=== PATIENT | male | born 1945 | race Caucasian/White ===

== ENCOUNTER 2021-03-16 05:47 | Inpatient (IN) | payer OTHER ==
[2021-03-15 16:16] LABS: BASOPHILS % (AUTO) 0.3 % (0.0-5.0); HEMATOCRIT 40.6 % (42-54); LYMPHOCYTES % (AUTO) 5.5 % (21.0-51.0); MEAN CORPUSCULAR HGB CONC 32.3 g/dL (32.0-36.0); MEAN CORPUSCULAR VOLUME 86.8 fL (79-99); NEUTROPHILS % (AUTO) 80.9 % (40.0-77.0); PLATELET COUNT (AUTO) 213 K/uL (130-400); RED BLOOD CELL COUNT(AUTO) 4.68 MIL/uL (4.50-6.20); RED CELL DISTRIBUTION WIDTH 15.7 % (11.0-15.5); WHITE BLOOD COUNT (AUTO) 20.6 K/uL (4.8-10.8)
[2021-03-15 16:31] LABS: ALBUMIN 3.3 g/dL (3.5-5.0); BILIRUBIN,TOTAL 1.4 mg/dL (0.2-1.0); CREATININE 1.6 mg/dL (0.5-1.5); POTASSIUM 4.8 mmol/L (3.5-5.1); TOTAL PROTEIN, SERUM 7.4 g/dL (6.0-8.3)
[~2021-03-16] VITALS: Ht 198.1 cm; Wt 92.9 kg
[2021-03-16] VITALS (11 sets, daily range): BP systolic 90–145; BP diastolic 52–78
[2021-03-16] MEDS ORDERED: 0.9%NACL 1000ML 1,000 ML IV ONE (06:49)
[2021-03-16] MEDS ORDERED: LIPA1CAP18 PO (06:52)
[2021-03-16] MEDS ORDERED: LISI10TA24 PO (06:52)
[2021-03-16] MEDS ORDERED: ONDA4TAB4 PO (06:52)
[2021-03-16] MEDS ORDERED: AMOX1TAB16 PO (06:52)
[2021-03-16] MEDS ORDERED: METO-408 PO (06:52)
[2021-03-16 07:26] LABS: BASOPHILS % (AUTO) 0.3 % (0.0-5.0); EOSINOPHILS % (AUTO) 0.6 % (0.0-8.0); HEMATOCRIT 37.2 % (42-54); LYMPHOCYTES % (AUTO) 5.8 % (21.0-51.0); MEAN CORPUSCULAR HGB CONC 32.3 g/dL (32.0-36.0); MEAN CORPUSCULAR VOLUME 86.7 fL (79-99); MONOCYTES % (AUTO) 9.8 % (3.0-13.0); NEUTROPHILS % (AUTO) 82.1 % (40.0-77.0); PLATELET COUNT (AUTO) 203 K/uL (130-400); RED BLOOD CELL COUNT(AUTO) 4.29 MIL/uL (4.50-6.20); RED CELL DISTRIBUTION WIDTH 15.5 % (11.0-15.5); WHITE BLOOD COUNT (AUTO) 14.6 K/uL (4.8-10.8)
[2021-03-16] MEDS ORDERED: PROPOFOL 10 MG/ML 20ML VIAL IV ONE ×2 (07:57)
[2021-03-16] MEDS ORDERED: ESMOLOL HCL 10 MG/ML 10 ML VIAL ONE (08:15)
[2021-03-16] MEDS ORDERED: CEFTRIAXONE 1G VIAL ONE (08:19)
[2021-03-16] MEDS ORDERED: LACTATED RINGERS 1000ML 1,000 ML IV ONE ×2 (08:59→09:47)
[2021-03-16] MEDS: LACTATED RINGERS 1000ML 1,000 ML IV SCH ×6 (09:30→16:37)
[2021-03-16] MEDS ORDERED: VANCOMYCIN PROTOCOL PER PHARMACY IV PRN (09:30)
[2021-03-16] MEDS ORDERED: ONDANSETRON 4MG INJ IV PRN (09:30)
[2021-03-16] MEDS ORDERED: DIGOXIN 250 MCG/ML 2ML AMP IV SCH (09:30)
[2021-03-16] MEDS ORDERED: VANCOMYCIN 1.5GM/NS 250ML IV SCH ×2 (10:00)
[2021-03-16] MEDS ORDERED: METOPROLOL TARTRATE 1 MG/ML 5ML VIAL IV SCH (10:00)
[2021-03-16 10:15] LABS: BASOPHILS % (AUTO) 0.3 % (0.0-5.0); EOSINOPHILS % (AUTO) 1.3 % (0.0-8.0); LYMPHOCYTES % (AUTO) 5.4 % (21.0-51.0); MEAN CORPUSCULAR HEMOGLOBIN 28.4 pg (27.0-33.0); MEAN CORPUSCULAR HGB CONC 32.2 g/dL (32.0-36.0); MEAN CORPUSCULAR VOLUME 88.3 fL (79-99); MONOCYTES % (AUTO) 8.8 % (3.0-13.0); NEUTROPHILS % (AUTO) 83.6 % (40.0-77.0); PLATELET COUNT (AUTO) 212 K/uL (130-400); RED BLOOD CELL COUNT(AUTO) 4.19 MIL/uL (4.50-6.20); RED CELL DISTRIBUTION WIDTH 15.7 % (11.0-15.5); WHITE BLOOD COUNT (AUTO) 15.5 K/uL (4.8-10.8)
[2021-03-16 10:24] LABS: INR 1.17 (0.85-1.15); PROTHROMBIN TIME 12.6 SEC (9.6-11.6)
[2021-03-16 10:25] LABS: PARTIAL THROMBOPLASTIN TIME 32.7 SEC (26.3-35.5)
[2021-03-16 10:27] LABS: HEMOGLOBIN A1C 6.4 % (4.0-6.0)
[2021-03-16] MEDS ORDERED: IOHEXOL 350 MG/ML 100ML INFUS..BTL IV ONE (10:27)
[2021-03-16] MEDS ORDERED: ZOSYN 3.375GM+NS 50ML 50 ML IV SCH (10:30)
[2021-03-16 10:46] LABS: ALANINE AMINOTRANSFERASE 19 U/L (12-78); ALBUMIN 2.6 g/dL (3.5-5.0); AMYLASE 45 U/L (25-115); ASPARTATE AMINOTRANSFERASE 16 U/L (10-37); BILIRUBIN,TOTAL 0.9 mg/dL (0.2-1.0); CARBON DIOXIDE 26 mmol/L (21-32); CHLORIDE 100 mmol/L (101-111); CREATINE KINASE, TOTAL 31 U/L (21-232); CREATININE 1.1 mg/dL (0.5-1.5); GLOMERULAR FILTR. RATE CALC 70 mL/min (>60); GLUCOSE,RANDOM 131 mg/dL (70-105); MYOGLOBIN 60 ng/mL (10-92); PHOSPHORUS 3.3 mg/dL (2.5-4.9); POTASSIUM 3.8 mmol/L (3.5-5.1); SODIUM SERUM 136 mmol/L (136-145); THYROID STIMULATING HORMONE 2.24 uIU/mL (0.36-3.74); TOTAL PROTEIN, SERUM 6.3 g/dL (6.0-8.3); UREA NITROGEN, BLOOD 29 mg/dL (7-18)
[2021-03-16 10:52] LABS: LIPASE < 50 U/L (114-286)
[2021-03-16 11:00] LABS: AMYLASE,BODY FLUID 6084 U/L
[2021-03-16 11:09] LABS: GLUCOSE,BODY FLUID 0 mg/dL (1-40)
[2021-03-16] MEDS ORDERED: ZOSYN 3.375GM+NS 50ML 50 ML ONE (19:42)
[2021-03-16] MEDS: ZOSYN 3.375GM+NS 50ML 50 ML IV SCH (20:06)
[2021-03-16] MEDS ORDERED: FAMOTIDINE 20MG VIAL IV SCH (21:00)
[2021-03-16] MEDS: 0.9% NACL 250ML 250 ML IV SCH (23:20)
[2021-03-16] MEDS: VANCOMYCIN KIT 1 GM/250 ML IV.KIT IV SCH (23:20)
[2021-03-17] VITALS: BP 119/71
[2021-03-17 01:12] LABS: BASOPHILS % (AUTO) 0.4 % (0.0-5.0); EOSINOPHILS % (AUTO) 0.2 % (0.0-8.0); HEMATOCRIT 32.7 % (42-54); LYMPHOCYTES % (AUTO) 11.1 % (21.0-51.0); MEAN CORPUSCULAR HEMOGLOBIN 28.3 pg (27.0-33.0); MEAN CORPUSCULAR VOLUME 85.8 fL (79-99); MONOCYTES % (AUTO) 7.5 % (3.0-13.0); NEUTROPHILS % (AUTO) 80.6 % (40.0-77.0); PLATELET COUNT (AUTO) 184 K/uL (130-400); RED BLOOD CELL COUNT(AUTO) 3.81 MIL/uL (4.50-6.20); RED CELL DISTRIBUTION WIDTH 15.4 % (11.0-15.5); WHITE BLOOD COUNT (AUTO) 8.9 K/uL (4.8-10.8)
[2021-03-17 01:40] LABS: ALANINE AMINOTRANSFERASE 19 U/L (12-78); ALBUMIN 2.3 g/dL (3.5-5.0); AMYLASE 42 U/L (25-115); ASPARTATE AMINOTRANSFERASE 15 U/L (10-37); CARBON DIOXIDE 26 mmol/L (21-32); CHLORIDE 102 mmol/L (101-111); CREATINE KINASE, TOTAL 18 U/L (21-232); GLOMERULAR FILTR. RATE CALC 78 mL/min (>60); GLUCOSE,RANDOM 113 mg/dL (70-105); MYOGLOBIN 45 ng/mL (10-92); POTASSIUM 3.5 mmol/L (3.5-5.1); SODIUM SERUM 136 mmol/L (136-145); TOTAL PROTEIN, SERUM 5.9 g/dL (6.0-8.3); UREA NITROGEN, BLOOD 23 mg/dL (7-18)
[2021-03-17 01:47] LABS: LIPASE < 50 U/L (114-286)
[2021-03-17 04:00] VITALS: BP 128/63
[2021-03-17] MEDS ORDERED: 0.9%NACL 50ML 50 ML IV ONE (05:54)
[2021-03-17] MEDS: ZOSYN 3.375GM+NS 50ML 50 ML IV SCH (05:58)
[2021-03-17 08:00] VITALS: BP 133/70
[2021-03-17] MEDS ORDERED: ENOXAPARIN SODIUM 40 MG/0.4 ML SYRINGE SQ SCH (09:00)
[2021-03-17] MEDS: VANCOMYCIN KIT 1 GM/250 ML IV.KIT IV SCH ×2 (09:31→20:59)
[2021-03-17] MEDS: PANTOPRAZOLE 40 MG/VIAL IVP SCH (09:31)
[2021-03-17] MEDS ORDERED: DIGOXIN 125 MCG TABLET PO SCH (11:00)
[2021-03-17 12:00] VITALS: BP 133/77
[2021-03-17] MEDS: APIXABAN 5 MG TABLET PO SCH ×2 (12:11→20:59)
[2021-03-17] MEDS: MEROPENEM 1 GM VIAL IVP SCH ×2 (15:13→22:23)
[2021-03-17] MEDS: LACTATED RINGERS 1000ML 1,000 ML IV SCH (15:36)
[2021-03-17 16:00] VITALS: BP 138/76
[2021-03-17 20:00] VITALS: BP 147/78
[2021-03-17] MEDS: 0.9% NACL 250ML 250 ML IV SCH (20:59)
[2021-03-18] VITALS: BP 156/76
[2021-03-18 03:58] LABS: HEMATOCRIT 35.2 % (42-54); MEAN CORPUSCULAR HEMOGLOBIN 27.2 pg (27.0-33.0); MEAN CORPUSCULAR HGB CONC 32.1 g/dL (32.0-36.0); MEAN CORPUSCULAR VOLUME 84.8 fL (79-99); RED BLOOD CELL COUNT(AUTO) 4.15 MIL/uL (4.50-6.20); WHITE BLOOD COUNT (AUTO) 10.7 K/uL (4.8-10.8)
[2021-03-18 04:00] VITALS: BP 140/73
[2021-03-18 04:13] LABS: ALBUMIN 2.4 g/dL (3.5-5.0); BILIRUBIN,TOTAL 0.8 mg/dL (0.2-1.0); POTASSIUM 3.3 mmol/L (3.5-5.1); TOTAL PROTEIN, SERUM 6.2 g/dL (6.0-8.3)
[2021-03-18 04:41] LABS: CRP QUANTITATIVE 229.1 mg/L (0.00-9.0)
[2021-03-18] MEDS: MEROPENEM 1 GM VIAL IVP SCH ×2 (05:05→14:30)
[2021-03-18 08:00] VITALS: BP 141/75
[2021-03-18] MEDS: VANCOMYCIN KIT 1 GM/250 ML IV.KIT IV SCH (10:53)
[2021-03-18] MEDS: PANTOPRAZOLE 40 MG/VIAL IVP SCH (10:54)
[2021-03-18] MEDS: APIXABAN 5 MG TABLET PO SCH (10:54)
[2021-03-18] MEDS: 0.9% NACL 250ML 250 ML IV SCH (10:54)
[2021-03-18 12:00] VITALS: BP 132/70
[2021-03-18] MEDS ORDERED: APIX5TAB PO (14:30)
[2021-03-18] MEDS ORDERED: AMOX1TAB16 PO (14:30)
[2021-03-18] MEDS ORDERED: DIGO125T71 PO (14:30)
[2021-03-18] MEDS ORDERED: KCL 20 MEQ ERTAB PO ONE ×2 (15:00→17:09)
[2021-03-18] MEDS ORDERED: DIGOXIN 125 MCG TABLET PO SCH (16:00)
== END 2021-03-18 18:00 | disposition home or self-care (01) | DRG 871 ==
LOC: DAH 05:47 → ENDO 05:47 → DAHIP 05:48 → ENDO 05:48 → 2DH 11:15
PROVIDERS: ADMIT Internal Medicine; ATTEND Internal Medicine
PROC: 0F9G8ZX Drainage of Pancreas, Via Natural or Artificial Opening Endoscopic, Diagnostic (ICD-10-PCS; principal; 2021-03-16)
DX: A41.9 Sepsis, unspecified organism (principal); K83.1 Obstruction of bile duct; R65.21 Severe sepsis with septic shock; K85.90 Acute pancreatitis without necrosis or infection, unspecified; K86.3 Pseudocyst of pancreas; N17.9 Acute kidney failure, unspecified; I10 Essential (primary) hypertension; Z20.822 Contact with and (suspected) exposure to COVID-19; I48.91 Unspecified atrial fibrillation; Z87.891 Personal history of nicotine dependence; Z90.49 Acquired absence of other specified parts of digestive tract; Z88.8 Allergy status to other drugs, medicaments and biological substances; Z83.3 Family history of diabetes mellitus; Z80.9 Family history of malignant neoplasm, unspecified
CPT/HCPCS: 36415; 43242; 71045; 74177; 80053; 80202; 82150; 82378; 82550; 82945; 82948; 83036; 83605; 83690; 83735; 83874; 84100; 84145; 84443; 84484; 85025; 85027; 85610; 85730; 86140; 86316; 87040; 87071; 87076; 87077; 87088; 87186; 87205; 87635; 93005; A4606; C9113; C9803; G0378; J0696; J1160; J1650; J2185; J2543; J2704; J3370; J3490; J7030; J7050; J7120; Q9967

== ENCOUNTER 2021-03-20 15:53 | Inpatient (IN) | payer OTHER ==
[~2021-03-20] VITALS: Ht 167.6 cm; Wt 92.5 kg
[~2021-03-20 15:53] MED LIST: AMOX1TAB16 PO; APIX5TAB PO; DIGO125T71 PO; LIPA1CAP18 PO; METO-408 PO; ONDA4TAB4 PO
[2021-03-20] MEDS ORDERED: METO25 PO (16:19)
[2021-03-20] MEDS ORDERED: CHOL2000 PO (16:19)
[2021-03-20] MEDS ORDERED: LISI10TA24 PO (16:19)
[2021-03-20] MEDS ORDERED: PHARMACY COMMUNICATION MISC SCH (16:30)
[2021-03-20 16:55] LABS: BASOPHILS % (AUTO) 0.5 % (0.0-5.0); EOSINOPHILS % (AUTO) 0.7 % (0.0-8.0); LYMPHOCYTES % (AUTO) 6.7 % (21.0-51.0); MEAN CORPUSCULAR HEMOGLOBIN 27.7 pg (27.0-33.0); MEAN CORPUSCULAR VOLUME 84.1 fL (79-99); MONOCYTES % (AUTO) 11.2 % (3.0-13.0); NEUTROPHILS % (AUTO) 79.7 % (40.0-77.0); PLATELET COUNT (AUTO) 317 K/uL (130-400); RED CELL DISTRIBUTION WIDTH 14.8 % (11.0-15.5)
[2021-03-20] MEDS ORDERED: IOHEXOL 350 MG/ML 100ML INFUS..BTL IV ONE (17:01)
[2021-03-20 17:09] LABS: CREATININE 0.9 mg/dL (0.5-1.5); POTASSIUM 3.7 mmol/L (3.5-5.1)
[2021-03-20 17:13] LABS: ALBUMIN 2.5 g/dL (3.5-5.0); BILIRUBIN,DIRECT 0.5 mg/dL (0.0-0.3); BILIRUBIN,TOTAL 1.1 mg/dL (0.2-1.0); MAGNESIUM 1.7 mg/dL (1.80-2.40); TOTAL PROTEIN, SERUM 6.9 g/dL (6.0-8.3)
[2021-03-20] MEDS: LACTATED RINGERS 1000ML 1,000 ML IV SCH ×2 (18:19→20:00)
[2021-03-20] MEDS: MEROPENEM 1 GM VIAL IVP SCH (18:57)
[2021-03-20] MEDS: AMYLASE PO SCH (22:27)
[2021-03-20] MEDS: PROTEASE PO SCH (22:27)
[2021-03-20] MEDS: LIPASE PO SCH (22:27)
[2021-03-20] MEDS: LISINOPRIL 10 MG TABLET PO SCH (22:27)
[2021-03-20] MEDS: METOPROLOL TARTRATE 25 MG TAB PO SCH (22:27)
[2021-03-21] MEDS: MORPHINE 2 MG SYG IVP PRN ×3 (00:22→14:32)
[2021-03-21] MEDS: MEROPENEM 1 GM VIAL IVP SCH ×2 (01:00→09:39)
[2021-03-21] MEDS: LACTATED RINGERS 1000ML 1,000 ML IV SCH (05:50)
[2021-03-21 06:49] LABS: CREATININE 0.8 mg/dL (0.5-1.5); MAGNESIUM 1.8 mg/dL (1.80-2.40); POTASSIUM 3.5 mmol/L (3.5-5.1)
[2021-03-21 08:00] VITALS: BP 141/68
[2021-03-21] MEDS: LIPASE PO SCH ×3 (09:00→20:39)
[2021-03-21] MEDS: (Cholecalciferol (Vitamin D3) (Vitamin D3) 50 MCG) PO SCH (09:00)
[2021-03-21] MEDS: PROTEASE PO SCH ×3 (09:00→20:39)
[2021-03-21] MEDS: AMYLASE PO SCH ×3 (09:00→20:39)
[2021-03-21] MEDS ORDERED: 0.9%NACL 50ML 50 ML IV ONE (09:21)
[2021-03-21] MEDS: METOPROLOL TARTRATE 25 MG TAB PO SCH ×2 (09:39→20:39)
[2021-03-21 12:00] VITALS: BP 131/69
[2021-03-21] MEDS ORDERED: ZOSYN 3.375GM +NS 50ML IV SCH (12:30)
[2021-03-21] MEDS: ZOSYN 3.375GM+NS 50ML 50 ML IV SCH ×3 (13:08→20:39)
[2021-03-21 16:00] VITALS: BP 133/67
[2021-03-21 20:07] VITALS: BP 159/75
[2021-03-21] MEDS: LISINOPRIL 10 MG TABLET PO SCH (20:39)
[2021-03-21 23:47] VITALS: BP 155/71
[2021-03-22] VITALS (23 sets, daily range): BP systolic 120–162; BP diastolic 57–99
[2021-03-22 04:45] LABS: BASOPHILS % (AUTO) 0.5 % (0.0-5.0); EOSINOPHILS % (AUTO) 0.8 % (0.0-8.0); HEMATOCRIT 35.1 % (42-54); MEAN CORPUSCULAR HEMOGLOBIN 27.5 pg (27.0-33.0); MEAN CORPUSCULAR HGB CONC 32.8 g/dL (32.0-36.0); MONOCYTES % (AUTO) 7.1 % (3.0-13.0); NEUTROPHILS % (AUTO) 84.6 % (40.0-77.0); PLATELET COUNT (AUTO) 369 K/uL (130-400); RED BLOOD CELL COUNT(AUTO) 4.18 MIL/uL (4.50-6.20); RED CELL DISTRIBUTION WIDTH 15.1 % (11.0-15.5); WHITE BLOOD COUNT (AUTO) 12.8 K/uL (4.8-10.8)
[2021-03-22 05:04] LABS: ALBUMIN 2.1 g/dL (3.5-5.0); BILIRUBIN,TOTAL 0.8 mg/dL (0.2-1.0); CREATININE 0.8 mg/dL (0.5-1.5); POTASSIUM 3.4 mmol/L (3.5-5.1)
[2021-03-22] MEDS: ZOSYN 3.375GM+NS 50ML 50 ML IV SCH ×3 (05:47→20:28)
[2021-03-22 05:59] LABS: ERYTHROCYTE SEDIMENTATION RATE 65 MM/HR (0-20)
[2021-03-22] MEDS ORDERED: LIDOCAINE HCL-MPF 1% 2ML VIAL IV PRN ×3 (07:00→11:30)
[2021-03-22] MEDS ORDERED: POTASSIUM CHLORIDE 20MEQ/100ML 100 ML IV PRN ×3 (07:00→11:30)
[2021-03-22] MEDS ORDERED: PROPOFOL 10 MG/ML 20ML VIAL IV ONE (08:21)
[2021-03-22] MEDS ORDERED: FENTANYL CITRATE PF 50 MCG/1 ML 2ML VIAL ONE (08:22)
[2021-03-22] MEDS ORDERED: ROCURONIUM 10MG/1ML SYR 10 MG/ML ML ONE (08:23)
[2021-03-22] MEDS ORDERED: GLYCOPYRROLATE 0.2 MG/ML 5 ML VIAL ONE (08:39)
[2021-03-22] MEDS ORDERED: NEOSTIGMINE 5MG/5ML SYR IV ONE (08:43)
[2021-03-22] MEDS: (Cholecalciferol (Vitamin D3) (Vitamin D3) 50 MCG) PO SCH (09:00)
[2021-03-22] MEDS: LIPASE/PROTEASE/AMYLASE 5000/17000/24000 PO SCH ×3 (10:25→20:29)
[2021-03-22] MEDS: METOPROLOL TARTRATE 25 MG TAB PO SCH ×2 (10:25→20:28)
[2021-03-22] MEDS: LACTATED RINGERS 1000ML 1,000 ML IV SCH ×2 (10:29→21:50)
[2021-03-22] MEDS ORDERED: POTASSIUM CHLORIDE 10% ELIXIR 20 MEQ/15 ML UDCUP PO PRN (11:30)
[2021-03-22] MEDS ORDERED: 0.9%NACL 50ML 50 ML IV ONE (11:40)
[2021-03-22] MEDS: KCL 20 MEQ ERTAB PO PRN ×2 (12:03→14:33)
[2021-03-22] MEDS: LISINOPRIL 10 MG TABLET PO SCH (20:28)
[2021-03-23 03:20] VITALS: BP 145/71
[2021-03-23 04:03] LABS: BASOPHILS % (AUTO) 0.5 % (0.0-5.0); EOSINOPHILS % (AUTO) 1.6 % (0.0-8.0); HEMATOCRIT 36.8 % (42-54); LYMPHOCYTES % (AUTO) 10.9 % (21.0-51.0); MEAN CORPUSCULAR HEMOGLOBIN 27.3 pg (27.0-33.0); MEAN CORPUSCULAR HGB CONC 32.3 g/dL (32.0-36.0); MEAN CORPUSCULAR VOLUME 84.4 fL (79-99); MONOCYTES % (AUTO) 6.2 % (3.0-13.0); PLATELET COUNT (AUTO) 403 K/uL (130-400); RED BLOOD CELL COUNT(AUTO) 4.36 MIL/uL (4.50-6.20); RED CELL DISTRIBUTION WIDTH 15.1 % (11.0-15.5); WHITE BLOOD COUNT (AUTO) 10.2 K/uL (4.8-10.8)
[2021-03-23 04:42] LABS: BILIRUBIN,TOTAL 0.6 mg/dL (0.2-1.0); CREATININE 0.8 mg/dL (0.5-1.5); MAGNESIUM 1.9 mg/dL (1.80-2.40); POTASSIUM 4.3 mmol/L (3.5-5.1); TOTAL PROTEIN, SERUM 5.3 g/dL (6.0-8.3)
[2021-03-23] MEDS: ZOSYN 3.375GM+NS 50ML 50 ML IV SCH ×3 (04:43→21:04)
[2021-03-23 08:00] VITALS: BP 133/66
[2021-03-23] MEDS: (Cholecalciferol (Vitamin D3) (Vitamin D3) 50 MCG) PO SCH (09:00)
[2021-03-23] MEDS: METOPROLOL TARTRATE 25 MG TAB PO SCH ×2 (09:07→21:05)
[2021-03-23] MEDS: LIPASE/PROTEASE/AMYLASE 5000/17000/24000 PO SCH ×3 (09:08→21:00)
[2021-03-23] MEDS: LACTATED RINGERS 1000ML 1,000 ML IV SCH (11:10)
[2021-03-23 12:00] VITALS: BP 138/73
[2021-03-23] MEDS ORDERED: 0.9%NACL 50ML 50 ML IV ONE ×2 (14:06→20:36)
[2021-03-23 16:00] VITALS: BP 133/70
[2021-03-23 18:58] VITALS: BP 155/71
[2021-03-23] MEDS: LISINOPRIL 10 MG TABLET PO SCH (21:05)
[2021-03-23 23:13] VITALS: BP 140/84
[2021-03-24] MEDS: LACTATED RINGERS 1000ML 1,000 ML IV SCH (00:33)
[2021-03-24] MEDS: ZOSYN 3.375GM+NS 50ML 50 ML IV SCH (04:00)
[2021-03-24 04:24] VITALS: BP 136/73
[2021-03-24 04:41] LABS: BASOPHILS % (AUTO) 0.8 % (0.0-5.0); EOSINOPHILS % (AUTO) 2.6 % (0.0-8.0); HEMATOCRIT 36.6 % (42-54); MEAN CORPUSCULAR HEMOGLOBIN 27.4 pg (27.0-33.0); MEAN CORPUSCULAR HGB CONC 32.2 g/dL (32.0-36.0); MEAN CORPUSCULAR VOLUME 84.9 fL (79-99); MONOCYTES % (AUTO) 7.4 % (3.0-13.0); NEUTROPHILS % (AUTO) 75.7 % (40.0-77.0); PLATELET COUNT (AUTO) 386 K/uL (130-400); RED BLOOD CELL COUNT(AUTO) 4.31 MIL/uL (4.50-6.20); RED CELL DISTRIBUTION WIDTH 15.2 % (11.0-15.5); WHITE BLOOD COUNT (AUTO) 7.7 K/uL (4.8-10.8)
[2021-03-24 05:01] LABS: BILIRUBIN,TOTAL 0.4 mg/dL (0.2-1.0); CREATININE 0.9 mg/dL (0.5-1.5); POTASSIUM 3.6 mmol/L (3.5-5.1); TOTAL PROTEIN, SERUM 5.7 g/dL (6.0-8.3)
[2021-03-24 08:00] VITALS: BP 136/76
[2021-03-24] MEDS: (Cholecalciferol (Vitamin D3) (Vitamin D3) 50 MCG) PO SCH (09:00)
[2021-03-24] MEDS: METOPROLOL TARTRATE 25 MG TAB PO SCH (09:01)
[2021-03-24] MEDS: LIPASE/PROTEASE/AMYLASE 5000/17000/24000 PO SCH (09:01)
[2021-03-24 10:32] VITALS: BP 150/68
== END 2021-03-24 15:48 | disposition home or self-care (01) | DRG 438 ==
LOC: EDH 15:53 → EDHIP 15:54 → 2DH 03-21 08:02 → 4AH 03-24 03:44
PROVIDERS: ADMIT Internal Medicine; ATTEND Internal Medicine
PROC: 0F9G80Z Drainage of Pancreas with Drainage Device, Via Natural or Artificial Opening Endoscopic (ICD-10-PCS; principal; 2021-03-22)
DX: K86.3 Pseudocyst of pancreas (principal); E43 Unspecified severe protein-calorie malnutrition; E87.1 Hypo-osmolality and hyponatremia; K86.1 Other chronic pancreatitis; E87.6 Hypokalemia; I10 Essential (primary) hypertension; I48.0 Paroxysmal atrial fibrillation; E78.5 Hyperlipidemia, unspecified; R53.81 Other malaise; E66.9 Obesity, unspecified; Z68.32 Body mass index [BMI] 32.0-32.9, adult; Z88.8 Allergy status to other drugs, medicaments and biological substances; Z90.49 Acquired absence of other specified parts of digestive tract; Z87.891 Personal history of nicotine dependence; Z83.3 Family history of diabetes mellitus; Z80.9 Family history of malignant neoplasm, unspecified
CPT/HCPCS: 36415; 43240; 74177; 80048; 80053; 80061; 80076; 82150; 82948; 83690; 83735; 84145; 85025; 85651; 86140; 87040; 93005; A4606; G0378; J2185; J2543; J2704; J2710; J3010; J3490; J7030; J7120; Q9967

== ENCOUNTER → 2021-03-28 | Outpatient (CLI) | payer OTHER ==
[~2021-03-28] MED LIST changes: -AMOX1TAB16 PO; +CHOL2000 PO; +IOHEXOL 350 MG/ML 100ML INFUS..BTL IV ONE; +LISI10TA24 PO
== END | disposition home or self-care (01) ==
LOC: OIH 07:38
PROVIDERS: ATTEND Internal Medicine
DX: K86.3 Pseudocyst of pancreas (principal); R18.8 Other ascites; Z98.890 Other specified postprocedural states; Z97.8 Presence of other specified devices
CPT/HCPCS: 74170; Q9967

== ENCOUNTER → 2021-04-25 | Outpatient (CLI) | payer OTHER ==
[~2021-04-25] MED LIST changes: +LEVO500T90 PO; -METO-408 PO; +METO25TA6 PO; +METR-172 PO
== END | disposition home or self-care (01) ==
LOC: RAH 08:41
PROVIDERS: ATTEND Internal Medicine
DX: K85.91 Acute pancreatitis with uninfected necrosis, unspecified (principal); K83.8 Other specified diseases of biliary tract; I70.0 Atherosclerosis of aorta; Z90.49 Acquired absence of other specified parts of digestive tract
CPT/HCPCS: 74178; Q9967

== ENCOUNTER 2024-09-12 05:46 | Emergency (ER) | payer OTHER ==
[~2024-09-12] VITALS: Ht 167.6 cm; Wt 86.2 kg
[~2024-09-12 05:46] MED LIST changes: -APIX5TAB PO; +ASPI-1197 PO; -CHOL2000 PO; -DIGO125T71 PO; -IOHEXOL 350 MG/ML 100ML INFUS..BTL IV ONE; -LEVO500T90 PO; +LEVO750T90 PO; -METR-172 PO; +METR375C2 PO; -ONDA4TAB4 PO
--- NOTE | 2024-09-12 06:21 | EKG ---
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
[2024-09-12] MEDS ORDERED: ASPIRIN 81MG CHEW TAB PO ONE (06:30)
[2024-09-12] MEDS ORDERED: NITROGLYCERIN 0.4 MG SL TAB SL PRN (06:30)
[2024-09-12] MEDS ORDERED: ROSU10TA72 PO (06:35)
[2024-09-12] MEDS ORDERED: LISI1TAB49 PO (06:35)
[2024-09-12] MEDS ORDERED: LIPA1CAP18 PO (06:35)
[2024-09-12] MEDS ORDERED: EMPA25TA PO (06:35)
[2024-09-12] MEDS ORDERED: FENO48TA10 PO (06:35)
[2024-09-12] MEDS ORDERED: METF-446 PO (06:35)
--- NOTE | 2024-09-12 06:35 | NUR ---
MED REC DONE AT THIS TIME
[2024-09-12] MEDS: morPHINE 4 MG SYG IVP ONE (06:38)
[2024-09-12] MEDS: ASPIRIN 325MG TAB PO ONE (06:38)
[2024-09-12 06:46] LABS: BASOPHILS % (AUTO) 1.3 % (0.0-5.0); EOSINOPHILS # (AUTO) 0.54 K/uL (0.00-0.70); EOSINOPHILS % (AUTO) 6.9 % (0.0-8.0); HEMATOCRIT 45.4 % (42-54); IMMATURE GRANULOCYTE ABSOLUTE 0.02 K/uL (0-1); LYMPHOCYTES # (AUTO) 1.7 K/uL (1.0-4.8); LYMPHOCYTES % (AUTO) 21.9 % (21.0-51.0); MEAN CORPUSCULAR HGB CONC 32.6 g/dL (32.0-36.0); MEAN CORPUSCULAR VOLUME 92.1 fL (79-99); MONOCYTES # (AUTO) 0.8 K/uL (0.1-1.0); MONOCYTES % (AUTO) 9.7 % (3.0-13.0); NEUTROPHILS # (AUTO) 4.7 K/uL (1.8-7.7); NEUTROPHILS % (AUTO) 59.9 % (40.0-77.0); PLATELET COUNT (AUTO) 241 K/uL (130-400); RED BLOOD CELL COUNT(AUTO) 4.93 MIL/uL (4.50-6.20); RED CELL DISTRIBUTION WIDTH 14.2 % (11.0-15.5); WHITE BLOOD COUNT (AUTO) 7.9 K/uL (4.8-10.8)
--- NOTE | 2024-09-12 06:53 | ERN ---
General Chief Complaint: Chest Pain Stated Complaint: CHEST PAIN Time Seen by MD: 05:58 History of Present Illness Initial Comments Mr Quintana is a 79-year-old male who comes in with left-sided chest and neck discomfort ongoing for several days. He reports waking up has a neck pain initially presumed to be musculoskeletal which let her migraine to the left anterior chest and upper arm. He describes the discomfort as muscle like worsening in the left arm use and relieved by certain positions. Topical muscle patch was applied the night before with partial relief. He reports a vague sense of feeling foggy or night himself but denies classic lightheadedness or presyncope.The [facility] but reason final results are still pending. He has a known history of hypertension hyperlipidemia both reportedly managing with medication Allergies: Coded Allergies: atorvastatin (Unverified Allergy, Unknown, 03/20/21) WORSENING LIVER FUNCTION Home Meds Active Scripts Metronidazole (Flagyl) 375 Mg Capsule, 500 MG PO TID for 5 Days, #15 CAP Prov:MICHAEL CONTRERAS MD 04/09/23 Levofloxacin (Levofloxacin) 750 Mg Tablet, 750 MG PO DAILY for 5 Days, #5 TAB Prov:JULES KHALIL APRN 04/09/23 Reported Medications Fenofibrate Nanocrystallized (Fenofibrate) 48 Mg Tablet, 1 TAB PO DAILY for 30 Days, #30 TAB 0 Refills 09/12/24 Lisinopril/Hydrochlorothiazide (Lisinopril-Hctz 10-12.5 mg Tab) 10 Mg-12.5 Mg Tablet, 1 TAB PO DAILY for 30 Days, #30 TAB 0 Refills 09/12/24 Metformin HCl (Metformin HCl) 1,000 Mg Tablet, 1 TAB PO BID for 30 Days, #60 TAB 0 Refills 09/12/24 Aspirin (Aspirin) 81 Mg Tab.chew, 1 TAB PO DAILY for 30 Days, #30 TAB 0 Refills 09/12/24 Rosuvastatin Calcium (Rosuvastatin Calcium) 10 Mg Tablet, 1 TAB PO HS for 30 Days, #30 TAB 0 Refills 09/12/24 Lipase/Protease/Amylase ([place] Dr 36,000 Units Capsule) 36K-114K Capsule., 1 CAP PO AD for 30 Days, #60 CAP 0 Refills 09/12/24 Empagliflozin (Jardiance) 25 Mg Tablet, 1 TAB PO DAILY for 30 Days, #30 TAB 0 Refills 09/12/24 Aspirin (Aspirin) 81 Mg Tab.chew, 81 MG PO DAILY, TAB.CHEW 04/05/23 Metoprolol Tartrate (Metoprolol Tartrate) 25 Mg Tablet, 12.5 MG PO BID, TAB 04/12/21 Lisinopril (Lisinopril) 10 Mg Tablet, 10 MG PO HS, TAB 03/20/21 Lipase/Protease/Amylase (Molly Fatima 36,000 Units Capsule) 1 Each Capsule.dr, 1 EACH PO TID, CAP 03/16/21 Past Medical History Past Medical History: Diabetes-Type II, Hypertension Medical History Other: ACUTE PANCREATITIS Past Surgical History: None Surgical History Other: HAND SURGERIES ROS Dictation Constitutional: Foggy fatigue sensation Eyes: Negative for injury, pain,redness, and discharge ENT: Negative for injury,pain or swelling Cardiovascular: Cardiac discomfort remote syncope Respiratory: Negative for shortness of breath, cough, and wheezing, Abdomen/GI: Negative for abdominal pain, nausea, vomiting, diarrhea, and constipation Back: Negative for injury and pain : Negative for injury, bleeding and discharge MS/Extremity: Left-sided neck and chest wall discomfort worsened by motion Skin: Negative for rash, and discoloration Neuro: Negative for headache, weakness, numbness, tingling, and seizure Psych: Negative for suicide ideation, homicidal ideation, and hallucinations Physical Exam Physical Exam Dictation General: awake, alert, NAD Head/Face: Normocephalic, atraumatic Eyes: PERRL, EOMI, vision at baseline ENT: oral cavity clear, TMs clear, no signs of infection Neck: Trachea midline, supple, no nuchal rigidity Cardiovascular: RRR, normal S1/S2, No MRGs, no JVD Respiratory: CTAB, no respiratory distress, No rales or wheezes Abdomen: Soft, non-tender, non-distended, normal bowel sounds, no guarding or rebound. Skin: Warm, dry, normal turgor, no rash MS/Extremity: Mild chest tenderness over the left anterior chest shoulder girdle no swelling or deformations Neuro: COAx4, GCS 15, strength 5/5, CN 2-12 intact, normal cerebellar exam, normal gait, Psych: Normal behavior, mood, and affect normal Results Laboratory and Microbiology Lab and Micro Result Laboratory Tests Test 09/12/24 06:11 White Blood Count 7.9 K/uL (4.8-10.8) Red Blood Count 4.93 MIL/uL (4.50-6.20) Hemoglobin 14.8 g/dL (14.0-18.0) Hematocrit 45.4 % (42-54) Mean Corpuscular Volume 92.1 fL (79-99) Mean Corpuscular Hemoglobin 30.0 pg (27.0-33.0) Mean Corpuscular Hemoglobin Concent 32.6 g/dL (32.0-36.0) Red Cell Distribution Width 14.2 % (11.0-15.5) Platelet Count 241 K/uL (130-400) Mean Platelet Volume 10.4 fL (7.5-10.5) Immature Granulocyte % (Auto) 0.3 % (0-1) Neutrophils (%) (Auto) 59.9 % (40.0-77.0) Lymphocytes (%) (Auto) 21.9 % (21.0-51.0) Monocytes (%) (Auto) 9.7 % (3.0-13.0) Eosinophils (%) (Auto) 6.9 % (0.0-8.0) Basophils (%) (Auto) 1.3 % (0.0-5.0) Neutrophils # (Auto) 4.7 K/uL (1.8-7.7) Lymphocytes # (Auto) 1.7 K/uL (1.0-4.8) Monocytes # (Auto) 0.8 K/uL (0.1-1.0) Eosinophils # (Auto) 0.54 K/uL (0.00-0.70) Basophils # (Auto) 0.10 K/uL (0.00-0.20) Absolute Immature Granulocyte (auto 0.02 K/uL (0-1) Nucleated Red Blood Cells 0.0 % (0.0-0.19) MDM Patient's care will be transferred to [facility] physician ED Course Orders Procedure Category Date Status Time 12 Lead Ekg Tracing- EKG 09/12/24 Complete Technical 06:12 Troponin I High LAB 09/12/24 In Process Sensitivity 06:12 Cbc With Differential LAB 09/12/24 Complete 06:12 Basic Metabolic Panel LAB 09/12/24 In Process 06:12 Chest 1vw RAD 09/12/24 Taken 06:12 Nitroglycerin 0.4mg PHA 09/12/24 In Process Sl Tab (Nitrostat) 06:30 Morphine 4mg Syg PHA 09/12/24 Complete (Morphine 4mg Syg) 06:30 Aspirin 325mg Tab PHA 09/12/24 Complete (Aspirin 325mg Tab) 06:30 Urinalysis Profile LAB 09/12/24 Logged 06:16 B-Type Natriuretic LAB 09/12/24 In Process Peptide 06:16 Aspirin 81mg Chew Tab PHA 09/12/24 Complete (Aspirin 81mg Chew 06:30 Current Medications Medications (Trade) Dose Ordered Sig/Jevon Route PRN Reason Start Time Stop Time Status Last Admin Dose Admin Aspirin (Aspirin 325mg Tab) 325 mg ONCE ONCE PO 09/12/24 06:30 09/12/24 06:31 DC 09/12/24 06:38 Aspirin (Aspirin 81mg Chew Tab) 324 mg ONCE ONCE PO 09/12/24 06:30 09/12/24 06:20 DC Morphine Sulfate (morPHINE 4MG SYG) 4 mg ONCE ONCE IVP 09/12/24 06:30 09/12/24 06:31 DC Nitroglycerin (Nitrostat) 0.4 mg Q5M PRN SL CHEST PAIN 09/12/24 06:30 Vital Signs Date Time Temp Pulse Resp B/P (MAP) Pulse Ox O2 Delivery O2 Flow Rate FiO2 09/12/24 06:23 98.2 61 14 135/66 97 Room Air* 0 21 09/12/24 05:48 96.6 58 17 142/75 96 Room Air 0 DX & DISP Disposition: Observation Departure Impression: Primary Impression: Chest pain Condition: Stable Referrals: WILLIAN NIX MD (PCP) ALESIA GRADY MD Sep 12, 2024 06:53
[2024-09-12 06:54] LABS: CREATININE 0.9 mg/dL (0.5-1.3); POTASSIUM 4.2 mmol/L (3.5-5.1)
--- NOTE | 2024-09-12 07:23 | HMCIMG ---
EXAM: CR Chest, 1 View. CLINICAL HISTORY: chest pain COMPARISON: None provided. FINDINGS: LUNGS: Bilateral bronchovascular markings appear prominent. There is no mass, infiltrate, or acute pulmonary abnormality. ECG leads are noted PLEURAL SPACES: No evidence of pleural effusion or pneumothorax. MEDIASTINUM: Cardiac size and mediastinal contours within normal limits. BONES: No acute osseous abnormality. IMPRESSION: 1. No acute cardiopulmonary findings. /[place]
[2024-09-12 07:25] VITALS: BP 159/76; PULSE 60; RESP 14; TEMP 98.2; O2SAT 97
== END 2024-09-12 08:10 | disposition home or self-care (01) ==
LOC: EDH 05:46
DX: R07.89 Other chest pain (principal); E11.9 Type 2 diabetes mellitus without complications; I10 Essential (primary) hypertension; Z79.82 Long term (current) use of aspirin; Z79.84 Long term (current) use of oral hypoglycemic drugs; Z79.899 Other long term (current) drug therapy
CPT/HCPCS: 36415; 71045; 80048; 83880; 84484; 85025; 93005; 99285

== ENCOUNTER → 2025-03-04 | Outpatient (CLI) | payer OTHER ==
[~2025-03-04] MED LIST changes: +EMPA25TA PO; +FENO48TA10 PO; +GADOTERATE MEGLUMINE 10 MMOL/20 ML VIAL IV ONE; +LISI1TAB49 PO; +METF-446 PO; +ROSU10TA98 PO
--- NOTE | 2025-03-04 23:25 | HMCIMG ---
EXAMINATION: MRI Abdomen with and without Contrast with MRCP Clinical Indication: Obstruction of the bile duct. Technique: Multiplanar, multisequence MRI of the abdomen was performed before and after intravenous contrast administration. Dedicated MRCP sequences were obtained, including heavily T2-weighted thick-slab and thin-slab images of the biliary tree and pancreatic duct. Diffusion-weighted imaging and dynamic post-contrast sequences were acquired. A total of 18 mL of intravenous gadolinium-based contrast agent (Clariscan) was administered. Comparison: No prior studies are available for comparison.FINDINGS: Liver: The liver measures approximately 13.6 cm in the midclavicular line. The hepatic parenchyma demonstrates preserved signal intensity without focal hepatic mass. There is bilobar intrahepatic biliary ductal dilatation. The right hepatic duct measures approximately 7 mm and the left hepatic duct measures approximately 8.7 mm. Gallbladder and Biliary Tree: The gallbladder is surgically absent. The common bile duct is dilated, measuring approximately 10 mm. Multiple T2 hyperintense intraluminal filling defects are present within the common bile duct, consistent with choledocholithiasis. There is a focal stricture at the junction of the suprapancreatic and intrapancreatic portions of the common bile duct, with marked upstream dilatation of the common bile duct and intrahepatic biliary radicals. No calculus is identified at the level of the stricture. Pancreas: There is a mass lesion arising from the pancreatic head region measuring approximately 3.5 x 2.7 x 3.3 cm. The lesion demonstrates heterogeneous hyperenhancement on post-contrast images and shows diffusion restriction. No washout. The lesion encases and compresses the distal common bile duct, resulting in obstructive biliary dilatation. No definite arterial or venous encasement is identified. The duodenum appears uninvolved. The remainder of the pancreatic parenchyma appears atrophic with prominence of the main pancreatic duct measuring up to 5 mm. Additionally, a well-defined cystic lesion is present in the distal pancreatic body measuring approximately 10 x 8 mm, appearing hyperintense on T2-weighted images and hypointense on T1-weighted images, without definite solid component. Adrenal Glands: The right adrenal gland is unremarkable. The left adrenal gland demonstrates a nodule measuring approximately 2.7 x 1.7 cm, indeterminate on the current examination. Spleen: The spleen measures approximately 9.2 cm and demonstrates normal signal intensity. Kidneys and Urinary Tract: There is prominence of the bilateral renal pelvicalyceal systems with abrupt caliber transition at the ureteropelvic junctions bilaterally, consistent with moderate bilateral hydronephrosis. These findings may represent bilateral ureteropelvic junction strictures. No renal mass is identified. Lymph Nodes: Few mildly enlarged peripancreatic lymph nodes are visualized, measuring up to 6 mm in short-axis diameter. Vasculature: No evidence of vascular invasion or encasement by the pancreatic head mass is identified. Other Findings: No ascites is present.IMPRESSION: * Heterogeneously enhancing pancreatic head mass measuring approximately 3.5 x 2.7 x 3.3 cm with diffusion restriction, causing encasement and compression of the distal common bile duct and resulting in obstructive biliary dilatation with peripancreatic lymphadenopathy. Imaging features are highly suspicious for pancreatic malignancy. Biliary ductal obstruction by the mass with upstream extrahepatic and intrahepatic biliary ductal dilatation. Recommend endoscopic ultrasound and biopsy for histopathological correlation. * Atrophic pancreatic parenchyma with dilatation of the main pancreatic duct up to 5 mm, compatible with downstream obstruction. * Small cystic lesion in the distal pancreatic body measuring 10 x 8 mm, without solid component, likely representing a benign pancreatic cystic lesion; imaging surveillance is recommended. /[place]
== END | disposition home or self-care (01) ==
LOC: RAH 08:16
PROVIDERS: ATTEND Internal Medicine
DX: K83.1 Obstruction of bile duct (principal); R93.3 Abnormal findings on diagnostic imaging of other parts of digestive tract; K85.90 Acute pancreatitis without necrosis or infection, unspecified; K86.89 Other specified diseases of pancreas; Z90.49 Acquired absence of other specified parts of digestive tract; K86.2 Cyst of pancreas
CPT/HCPCS: 74183; A9575